=== PATIENT | male | born 1950 | race African-American/Black ===

== ENCOUNTER 2016-12-05 06:59 | Observation (INO) | payer MEDICARE, MEDICAID ==
[2016-12-05 07:38] LABS: #Basophils 0.1 thou/uL (0.0-0.2); #Eosinphils 0.2 thou/uL (0.0-0.7); #Lymphocytes 2.2 thou/uL (1.20-3.40); #Monocytes 0.7 thou/uL (0.11-0.59); #Neutrophils 2.6 thou/uL (1.40-6.50); %Basophils 1.6 % (0.0-1.0); %Eosinophils 2.9 % (0.0-10.0); %Lymphocytes 38.6 % (21.0-51.0); %Monocytes 11.7 % (0.0-10.0); Mean Platelet Volume 7.5 fL (7.4-10.4); Red Blood Cell (RBC) Count 4.49 mill/uL (4.70-6.10); White Blood Cell (WBC) Count 5.7 thou/uL (4.8-10.8)
[2016-12-05 08:00] LABS: ALT (SGPT) 10 U/L (8-55); AST (SGOT) 14 U/L (5-34); Alkaline Phosphatase 87 U/L (40-150); Anion Gap 13 mmol/L (10-20); BUN (Urea Nitrogen) 26 mg/dL (8.4-25.7); Bilirubin, Total 0.4 mg/dL (0.2-1.2); CK (CPK) 478 U/L (30-200); Calc. Creatinine Clearance 0 mL/min (70-130); Calcium 9.7 mg/dL (7.8-10.44); Carbon Dioxide 27 mmol/L (23-31); Chloride 104 mmol/L (98-107); Estimated GFR-MDRD 51; Globulin 3.4 g/dL (2.4-3.5); Lipase 32 U/L (8-78); Magnesium 1.9 mg/dL (1.6-2.6); Protein, Total 7.3 g/dL (5.8-8.1)
--- NOTE | 2016-12-05 08:04 | RAD ---
SINGLE VIEW OF CHEST: Date: 12/05/16 COMPARISON: 07/17/16. HISTORY: Neck and chest pain on the left side that started 10 hours ago. FINDINGS: Single view of the chest shows a normal sized cardiomediastinal silhouette. There is no evidence of consolidation, mass, or pleural effusion. The patient is status post left shoulder arthroplasty. IMPRESSION: No evidence of acute cardiopulmonary disease. POS: [facility]
[2016-12-05 08:19] LABS: Troponin I Less than 0.010 ng/mL (< 0.028)
[2016-12-05 09:50] VITALS: BMI 24.4
[2016-12-05 11:01] LABS: Troponin I Less than 0.010 ng/mL (< 0.028)
[2016-12-05] MEDS ORDERED: FLU VACC TS2017-18 (>65YR) 0.5 ML SYRINGE IM ONE (11:30)
[2016-12-05] MEDS ORDERED: Milk Of Magnesia 30 ML UDCUP PO PRN (11:48)
[2016-12-05] MEDS ORDERED: Acetaminophen 325 MG TAB PO PRN (11:48)
[2016-12-05] MEDS ORDERED: Senokot 8.6 MG TAB PO PRN (11:48)
[2016-12-05] MEDS ORDERED: Ondansetron HCl/PF 4 MG/2 ML Vial IVP PRN (11:48)
[2016-12-05] MEDS ORDERED: Zolpidem Tartrate 5 MG TAB PO PRN (11:48)
[2016-12-05] MEDS ORDERED: Mag-Al 1200 mg/1200 mg/30 ML UDCUP PO PRN (11:48)
[2016-12-05] MEDS ORDERED: Ondansetron ODT 4 MG TAB PO PRN (11:48)
[2016-12-05] MEDS ORDERED: Loperamide HCl 2 MG CAP PO PRN (11:48)
[2016-12-05] MEDS ORDERED: Dextrose 50% Abboject 50 ML SYRINGE SLOW IVP PRN (11:52)
[2016-12-05] MEDS ORDERED: Dextrose 5% in Water 1,000 ML IV PRN (11:52)
[2016-12-05] MEDS ORDERED: HumaLOG 300 UNITS/3 ML VIAL SC PRN ×2 (11:52)
[2016-12-05] MEDS ORDERED: fentaNYL 100 mcg/hour Patch TD SCH (12:30)
--- NOTE | 2016-12-05 12:45 | HP ---
PRIMARY CARE PHYSICIAN: [facility] in [place]. REASON FOR ADMISSION: Chest pain. HISTORY OF PRESENT ILLNESS: A 66-year-old male who has chronic neck and shoulder p ain, who came to emergency room for evaluation for left-sided chest pain. The patient has this pain for last 2-3 days, but last night gotten worse. The patient normally takes fentanyl patch and Norc o for chronic pain. He ran out chronic pain medication. Dr. Jenkins is his pain doctor, who prescrib ed fentanyl patch as well as [place], but he was not able to pick it up. His pain gotten worse and th at is why he was concerned about heart pain and he decided to come to the emergency room for evaluat ion. He denies any radiation of pain. His pain is on the left side over left ribcage about 8/10 in intensity, which is increased with movement and lying down on the left side. He also has neck pain and shoulder pain which has also gotten worse lately. The patient reports that because of this richard n, he was not able to sleep last night. The patient woke up this morning with pain and he was slightly diaphoretic. He called paramedics an d paramedics gave him aspirin and nitrospray and that helped little bit his pain, but he was still h aving left-sided sharp pain as well as neck pain and shoulder pain. The patient had routine evaluation in the emergency room and his routine blood tests including cardi ogram was unremarkable. The patient is being admitted for rule out acute coronary syndrome. This p atient has stress test done in 2015 at that time it was normal. Since then, the patient never had a ny cardiac workup. REVIEW OF SYSTEMS: The following complete review of systems was negative, unless otherwise mentione d in the HPI or below: Constitutional: Weight loss or gain, ability to conduct usual activities. Skin: Rash, itching. Eyes: Double vision, pain. ENT/Mouth: Nose bleeding, neck stiffness, pain, tenderness. Cardiovascular: Palpitations, dyspnea on exertion, orthopnea. Respiratory: Shortness of breath, wheezing, cough, hemoptysis, fever or night sweats. Gastrointestinal: Poor appetite, abdominal pain, heartburn, nausea, vomiting, constipation, or diar yogesh. Genitourinary: Urgency, frequency, dysuria, nocturia. Musculoskeletal: Pain, swelling. Neurologic/Psychiatric: Anxiety, depression. Allergy/Immunologic: Skin rash, bleeding tendency. Please see my HPI for pertinent positives and negatives. All other review of systems was reviewed a nd negative except as mentioned in the HPI. 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 PAST SURGICAL HISTORY: Back surgery x2, neck surgery, left arm surgery, left shoulder surgery. PAST PSYCHIATRIC HISTORY: Reviewed and negative. SOCIAL HISTORY: The patient lives at home with his family. He smokes about half pack per day. He denies any alcohol abuse. He denies any other illicit drug abuse. FAMILY HISTORY: No strong family history of premature coronary artery disease, stroke or cancer. ALLERGIES: No known drug allergies. CURRENT HOME MEDICATIONS: Aspirin 325 mg p.o. daily, amlodipine 10 mg p.o. daily, Baclofen 20 mg p. o. b.i.d., Pulmicort inhalation b.i.d., Gos[place] 10 one tablet b.i.d. p.r.n., hydrochlorothiazide 12.5 mg p.o. daily, lisinopril 20 mg p.o. daily, metoprolol 50 mg p.o. b.i.d., Crestor 40 mg p.o. at bedt bonnie, Spiriva 18 mcg inhalation daily, Zantac 150 mg p.o. b.i.d., bupropion 150 mg p.o. b.i.d., fenta nyl patch every 3 days, metformin 500 mg p.o. daily. EMERGENCY ROOM COURSE: Reviewed. PHYSICAL EXAMINATION: VITAL SIGNS: On arrival, blood pressure 138/85, pulse 73, respiratory rate 17, temperature 98.0, sa turation 98% on room air, weight 84.8 kilograms. GENERAL: The patient is currently alert, awake, no acute distress. HEENT: Head: Normocephalic and atraumatic. Eyes: Pupils round and reactive to light. Extraocula r muscles are intact. ENT: Oropharynx within normal limits. Moist mucous membranes. No oral lesi ons. No pharyngeal erythema, no exudates. NECK: Supple, though the patient does have reproducible neck pain on the left side. The patient al so has shoulder pain that is movement related. The patient also has left-sided chest pain which is reproducible. CARDIAC: Within normal limits. No murmur, no gallop, no rub. LUNGS: Clear to auscultation without any rhonchi or rales. ABDOMEN: Soft and benign without any tenderness. EXTREMITIES: No edema. NEUROLOGIC: Nonfocal examination. He is moving all 4 limbs, plantar bilateral flexor. PSYCHIATRIC: Normal affect. SIGNIFICANT LABS: EKG based on my review, normal sinus rhythm, premature ventricular complexes, lef t axis deviation. Chest x-ray based on my review, no acute cardiopulmonary process. CBC: WBC 5.7, hemoglobin 12.2, platelets 242. BMP: Sodium 140, potassium 3.7, chloride 104, carbon dioxide 27, BUN 26, creatinine 1.63. Glucose 104, calcium 9.7. Magnesium 1.9. LFT: AST 14, ALT 10, alkaline phosphatase 87, albumin 3.9, lipase 32. CK 478, CK-MB 1.9, troponin I less than 0.010 and then nega tive second enzymes. ASSESSMENT AND PLAN: 1. Left-sided chest pain, most likely this patient's chest pain description is noncardiac, most lik bucky musculoskeletal, given reproducibility. This patient also has underlying several risk factors f or coronary artery disease including hypertension, dyslipidemia, and tobacco abuse disorder. The pa tient will require observation and we will do stress test for diagnostic reason. We will check lipi d profile for risk stratification. Meanwhile, we will continue with nitro patch q.8 hourly, aspirin 325 mg p.o. daily. We will hold on beta pippa therapy because we are planning to do stress test tomorrow. 2. Neck pain and shoulder pain on the left side, most likely is chronic pain. This patient has nec k, degenerative joint disease. At this point, the patient is following Dr. Jenkins as an outpatient b asis. He was given pain medication by Dr. Jenkins, but he was not able to pick a prescription. I jagruti l resume his home medication fentanyl patch every 3 days, along with [place] 10 one tablet q.4 hourly p.r.n. and baclofen 20 mg b.i.d. 3. Hypertension. We will continue amlodipine 10 mg p.o. daily, lisinopril 20 mg p.o. daily, hydroc hlorothiazide 12.5 mg p.o. daily. We are holding metoprolol because we are planning to do stress te st, but that can be restarted again tomorrow. 4. Chronic obstructive pulmonary disease without exacerbation. We will continue DuoNeb therapy q.6 hourly p.r.n., Spiriva 18 mcg inhalation daily and Pulmicort inhalation b.i.d. 5. Dyslipidemia. Check lipid profile tomorrow and continue Crestor 40 mg p.o. at bedtime. 6. Diabetes type 2. Insulin as per sliding scale protocol and continue metformin 500 mg p.o. daily . 7. Tobacco abuse disorder. Smoking cessation counseling given. Healthy lifestyle measures discuss ed with the patient. 8. Gastroesophageal reflux disease. We will continue Zantac 150 mg p.o. b.i.d./Pepcid 20 mg p.o. b .i.d. 9. Anxiety disorder. Continue bupropion 150 mg p.o. b.i.d. Deep venous thrombosis prophylaxis not needed because we are expecting discharge in 24 hours. 10. Gastrointestinal prophylaxis. Pepcid 20 mg p.o. b.i.d. 11. Code status: The patient is FULL CODE. The patient does not have any surrogate decision maker . Disposition plan based on stress test results, likely within 24 hours. Plan of care discussed with the patient in detail.
[2016-12-05] MEDS: HYDROcodone/Acetaminophen 10/325 mg Tablet PO PRN ×2 (13:11→19:38)
[2016-12-05 14:11] LABS: Troponin I Less than 0.010 ng/mL (< 0.028)
[2016-12-05] MEDS: Ipratropium Bromide 2.5 ml Neb NEB SCH ×4 (16:14→23:55)
[2016-12-05] MEDS: Nitroglycerin 2% Ointment 1 INCH/1 GM Packet TOP SCH ×2 (17:40→19:39)
[2016-12-05] MEDS: Famotidine 20 MG TAB PO SCH (19:38)
[2016-12-05] MEDS: Bupropion 150 MG SR TAB PO SCH (19:38)
[2016-12-05] MEDS: Baclofen 10 MG TAB PO SCH (19:38)
[2016-12-05] MEDS ORDERED: Mometasone Furoate 120 PUFF 220 MCG INH PRN (21:00)
[2016-12-06] MEDS: Nitroglycerin 2% Ointment 1 INCH/1 GM Packet TOP SCH (06:19)
[2016-12-06] MEDS: Ipratropium Bromide 2.5 ml Neb NEB SCH ×2 (06:48→12:45)
[2016-12-06] MEDS: Baclofen 10 MG TAB PO SCH (08:58)
[2016-12-06] MEDS: Famotidine 20 MG TAB PO SCH (08:59)
[2016-12-06] MEDS: Bupropion 150 MG SR TAB PO SCH (08:59)
[2016-12-06] MEDS ORDERED: Lisinopril 20 MG TAB PO SCH (09:00)
[2016-12-06] MEDS ORDERED: Aspirin 325 MG TAB PO SCH (09:00)
[2016-12-06] MEDS ORDERED: Hydrochlorothiazide 25 MG TAB PO SCH (09:00)
[2016-12-06] MEDS: HYDROcodone/Acetaminophen 10/325 mg Tablet PO PRN (09:02)
--- NOTE | 2016-12-06 10:08 | DIS ---
DATE OF ADMISSION: 12/05/2016 DATE OF DISCHARGE: 12/06/2016 DISCHARGE DISPOSITION: Home. PRIMARY DISCHARGE DIAGNOSES: 1. Chest pain, ruled out acute coronary syndrome. 2. Neck pain and shoulder pain related with cervical spine arthritis. SECONDARY DISCHARGE DIAGNOSES: Hypertension, chronic obstructive pulmonary disease, diabetes type 2, dyslipidemia, tobacco abuse disorder, gastroesophageal reflux disease, anxiety disorder, and chronic pain disorder. PRIMARY PROCEDURE/OPERATION: None. RADIOLOGICAL INVESTIGATION: Chest x-ray was normal. Stress test is negative SIGNIFICANT LABORATORY DATA: Hemoglobin 12.2, creatinine 1.63, CK 478. Cardiac enzymes negative x3. LFT normal, lipase 32. DISCHARGE MEDICATIONS: Amlodipine 5 mg p.o. b.i.d., aspirin 325 mg p.o. daily, baclofen 20 mg p.o. b.i.d., Pulmicort 2 puffs inhalation b.i.d., [place] 10 one tablet b.i.d. p.r.n., hydrochlorothiazide 12.5 mg p.o. daily, lisinopril 20 mg p.o. daily, metoprolol tartrate 50 mg p.o. b.i.d., Crestor 40 mg p.o. at bedtime , Spiriva 18 mcg inhalation daily, Zantac 150 mg p.o. b.i.d., fentanyl patch every 3 days, metformin 500 mg p.o. daily. CONTRAINDICATIONS: None. CODE STATUS: FULL CODE. INPATIENT CONSULTANTS: None. ALLERGIES: No known drug allergies. DISCHARGE PLAN: Post hospital, the patient is advised to follow with primary care physician. HOSPITAL COURSE: A 66-year-old male who was admitted for chest pain. He was having left-sided sharp chest pain which was mostly musculoskeletal based on his description. We did serial cardiac enzymes and ruled out acute coronary syndrome. We also did a nuclear medicine stress test; result is pending by the time of dictation. If stress test is negative, then this patient will be discharged home. This patient is also complaining of neck pain and shoulder pain, but he has cervical spine arthritis and he has chronic pain disorder. He is following Dr. Hauser for pain management. Dr. Hauser already prescribed him pain medication, but he has to go to pharmacy to pick it up. While in hospital, we controlled his pain as well. We continued all his home medication and on discharge, we continued similar home medications without any change. The patient is seen and examined at bedside today. All review of systems reviewed and negative. PHYSICAL EXAMINATION: VITAL SIGNS: Currently temperature 98.1, pulse 66, respiratory rate 18, saturation 96%, blood pressure 124/72, weight 180 pounds. LUNGS: Clear to auscultation without any rhonchi. CARDIAC: S1 and S2 regular without any murmur. ABDOMEN: Soft and benign. EXTREMITIES: No edema. NEUROLOGIC: Nonfocal examination. GENERAL: The patient is alert, oriented x3. If stress test is negative, then we will discharge him home later on today. Stress test is normal MTDD
[2016-12-06 11:36] VITALS: BP 103/60; TEMP 98.4
[2016-12-06] MEDS ORDERED: Regadenoson 0.4 MG/5 ML SYRINGE ONE (12:00)
--- NOTE | 2016-12-06 12:54 | NM ---
NUCLEAR MEDICINE CARDIAC PERFUSION EXAMINATION WITH EJECTION FRACTION: COMPARISON: 12/21/14. HISTORY: 66-year-old male with chest pain. History of stroke. Hypertension, diabetes, and smoking history. TECHNIQUE: A two day nuclear medicine cardiac perfusion examination was performed. Rest images were obtained us ing 27 mCi of technetium-99m sestamibi. Stress images were obtained using 31 mCi of technetium-99m s estamibi and Lexiscan. FINDINGS: Tomographic images show no significant fixed or reversible perfusion defects. Gated images show norm al wall motion with an ejection fraction of 53%. EDV: 118 ml LHR: 0.4 TID: 0.9 IMPRESSION: No evidence of ischemia. POS: [facility]
== END 2016-12-06 13:48 | disposition home or self-care (01) ==
LOC: ERS 06:59 → 2SW 08:47
PROVIDERS: ADMIT Internal Medicine; ATTEND Internal Medicine
DX: R07.89 Other chest pain (principal); M46.92 Unspecified inflammatory spondylopathy, cervical region; I10 Essential (primary) hypertension; E11.9 Type 2 diabetes mellitus without complications; K21.9 Gastro-esophageal reflux disease without esophagitis; B18.2 Chronic viral hepatitis C; F17.210 Nicotine dependence, cigarettes, uncomplicated; J44.9 Chronic obstructive pulmonary disease, unspecified; Z79.899 Other long term (current) drug therapy; Z98.890 Other specified postprocedural states; Z86.73 Personal history of transient ischemic attack (TIA), and cerebral infarction without residual deficits
CPT/HCPCS: 71010; 78452; 80053; 80061; 82550; 82553; 82962 ×2; 83690; 83735; 84484 ×2; 85025; 93005; 93017; 94640 ×2; 99285; A9500; G0008; G0378 ×2; Q2036; 36415; 36416; 90471; 90682; J2785; J7644

== ENCOUNTER 2022-07-21 04:27 | Inpatient (IN) | payer OTHER ==
[2022-07-21] MEDS ORDERED: Ondansetron PF 4 MG/2 ML Vial IVP PRN (07:53)
[2022-07-21] MEDS ORDERED: Glucagon 1 MG/ML KIT IM PRN (07:53)
[2022-07-21] MEDS ORDERED: Acetaminophen 325 MG TAB PO PRN (07:53)
[2022-07-21] MEDS ORDERED: Dextrose 5% in Water 1,000 ML IV PRN (07:53)
[2022-07-21] MEDS ORDERED: HumaLOG 300 UNITS/3 ML VIAL SC PRN (07:53)
[2022-07-21] MEDS ORDERED: Dextrose 50% Abboject 50 ML SYRINGE SLOW IVP PRN (07:53)
[2022-07-21] MEDS ORDERED: Mometasone Furoate 30 PUFF 220 MCG INH PRN (08:14)
[2022-07-21] MEDS: metFORMIN 500 MG TAB PO SCH (09:42)
[2022-07-21] MEDS: Heparin 5,000 UNITS/ML VIAL SC SCH ×3 (09:43→19:59)
[2022-07-21] MEDS: Aspirin 81 mg Enteric Coated Tablet PO SCH (09:43)
[2022-07-21 09:45] LABS: Troponin I Less than 0.010 ng/mL (< 0.028)
[2022-07-21] MEDS ORDERED: hydrALAZINE 20 MG/ML VIAL SLOW IVP PRN (09:55)
[2022-07-21] MEDS ORDERED: Regadenoson 0.4 MG/5 ML SYRINGE ONE (12:14)
[2022-07-21] MEDS: Ipratropium Bromide 2.5 ml Neb NEB SCH ×3 (13:12→23:42)
[2022-07-21] MEDS: Amlodipine 5 MG TAB PO SCH ×2 (13:47→20:08)
[2022-07-21] MEDS: Bupropion 150 MG SR TAB PO SCH ×2 (13:48→20:08)
[2022-07-21] MEDS: Hydrochlorothiazide 25 MG TAB PO SCH (13:48)
[2022-07-21] MEDS: Lisinopril 20 MG TAB PO SCH (13:49)
[2022-07-21] MEDS: Tamsulosin HCl 0.4 MG CAP PO SCH (13:54)
[2022-07-21] MEDS: Famotidine 20 MG TAB PO SCH (13:54)
[2022-07-21 15:23] LABS: Troponin I Less than 0.010 ng/mL (< 0.028)
[2022-07-21] MEDS: HYDROcodone/Acetaminophen 10/325 mg Tablet PO PRN (17:44)
[2022-07-21] MEDS ORDERED: Communication Order-Pharmacy FS PRN (19:00)
[2022-07-21] MEDS: Rosuvastatin 20 MG TAB PO SCH (19:59)
[2022-07-22] MEDS: Tamsulosin HCl 0.4 MG CAP PO SCH (04:53)
[2022-07-22] MEDS: Aspirin 81 mg Enteric Coated Tablet PO SCH (04:53)
[2022-07-22] MEDS: Famotidine 20 MG TAB PO SCH (04:53)
[2022-07-22 04:57] LABS: #Eosinphils 0.2 thou/uL (0.0-0.7); #Monocytes 0.5 thou/uL (0.11-0.59); #Neutrophils 2.5 thou/uL (1.40-6.50); %Basophils 0.6 % (0.0-1.0); %Eosinophils 3.4 % (0.0-10.0); %Monocytes 8.8 % (0.0-10.0); Mean Corpuscular HGB CONC 31.7 g/dL (32.0-36.0); Mean Corpuscular Hemoglobin 27.1 pg (27.0-31.0); Mean Corpuscular Volume 85.4 fl (78.0-98.0); Mean Platelet Volume 10.3 fL (7.4-10.4); Platelet Count 168 10x3/uL (130-400); RBC Distribution Width 13.9 % (11.5-14.5); White Blood Cell (WBC) Count 5.3 10x3/uL (4.8-10.8)
[2022-07-22 05:05] LABS: Hemoglobin A1c 5.8 % (4.0-6.0)
[2022-07-22 05:20] LABS: Anion Gap 10 mmol/L (10-20); BUN (Urea Nitrogen) 19 mg/dL (8.4-25.7); Calc. Creatinine Clearance 55 mL/min (70-130); Calcium 9.5 mg/dL (7.8-10.44); Carbon Dioxide 22 mmol/L (23-31); Cardiac Risk 2.5 (Less than 4.5); Chloride 110 mmol/L (98-107); Cholesterol 131 mg/dl (< 200 Desired); Estimated GFR 68; Glucose 94 mg/dL (83-110); HDL Cholesterol 53 mg/dL (>60 Neg Risk); LDL Cholesterol, Calculated 70 mg/dL; Potassium 4.1 mmol/L (3.5-5.1); Sodium 138 mmol/L (136-145); Triglycerides 38 mg/dL (Less than 150)
[2022-07-22] MEDS ORDERED: Sodium Chloride 0.9% 1,000 ML IV SCH ×2 (06:00→11:40)
[2022-07-22] MEDS: Ipratropium Bromide 2.5 ml Neb NEB SCH ×3 (07:08→18:58)
[2022-07-22] MEDS: metFORMIN 500 MG TAB PO SCH (07:50)
[2022-07-22] MEDS: HYDROcodone/Acetaminophen 10/325 mg Tablet PO PRN ×2 (08:03→20:42)
[2022-07-22] MEDS: Hydrochlorothiazide 25 MG TAB PO SCH (08:06)
[2022-07-22] MEDS: Bupropion 150 MG SR TAB PO SCH (08:06)
[2022-07-22] MEDS: Lisinopril 20 MG TAB PO SCH (08:06)
[2022-07-22] MEDS: Amlodipine 5 MG TAB PO SCH (08:06)
[2022-07-22] MEDS ORDERED: fentaNYL 50 mcg/mL 1 mL Vial ONE (10:17)
[2022-07-22] MEDS ORDERED: Midazolam HCl 2 mg/2 ml Vial ONE (10:17)
[2022-07-22] MEDS ORDERED: Lidocaine 1% (PF) 30 ML VIAL ONE (10:17)
[2022-07-22] MEDS ORDERED: Heparin 10,000 UNITS/ 10 ML VIAL ONE (10:17)
[2022-07-22] MEDS ORDERED: Iopamidol 370 76% 100 ML VIAL ONE (10:31)
[2022-07-22] MEDS ORDERED: Protamine Sulfate 50 MG/5 ML VIAL ONE (11:22)
[2022-07-22] MEDS ORDERED: Acetaminophen/Codeine 30-300mg Tablet PO PRN ×2 (11:38)
[2022-07-22] MEDS ORDERED: Nitroglycerin 0.4 MG TAB (25 Tab Bottle) SL PRN (11:38)
[2022-07-22] MEDS ORDERED: Sodium Chloride 0.9% 200 ML IV PRN (11:38)
[2022-07-22] MEDS ORDERED: Mometasone 100 MCG/Formoterol 5 MCG 120 PUFF INHALER INH PRN (15:26)
[2022-07-22] MEDS: Rosuvastatin 20 MG TAB PO SCH (20:42)
[2022-07-22] MEDS: Metoprolol Tartrate 25 MG TAB PO SCH (20:43)
[2022-07-22] MEDS ORDERED: Artificial Tear Sol 15 ML BOT EA EYE PRN (21:02)
[2022-07-23] MEDS: Ipratropium Bromide 2.5 ml Neb NEB SCH ×5 (01:52→21:32)
[2022-07-23 05:34] LABS: Anion Gap 11 mmol/L (10-20); BUN (Urea Nitrogen) 16 mg/dL (8.4-25.7); Calc. Creatinine Clearance 56 mL/min (70-130); Calcium 9.5 mg/dL (7.8-10.44); Carbon Dioxide 24 mmol/L (23-31); Chloride 108 mmol/L (98-107); Estimated GFR 69; Glucose 88 mg/dL (83-110); Potassium 4.2 mmol/L (3.5-5.1); Sodium 139 mmol/L (136-145)
[2022-07-23] MEDS: Famotidine 20 MG TAB PO SCH (09:02)
[2022-07-23] MEDS: Aspirin 81 mg Enteric Coated Tablet PO SCH (09:02)
[2022-07-23] MEDS: Lisinopril 20 MG TAB PO SCH (09:02)
[2022-07-23] MEDS: Tamsulosin HCl 0.4 MG CAP PO SCH (09:02)
[2022-07-23] MEDS: Metoprolol Tartrate 25 MG TAB PO SCH ×2 (09:02→19:57)
[2022-07-23] MEDS: Zonisamide 25 MG CAP PO SCH (09:03)
[2022-07-23] MEDS ORDERED: fentaNYL 50 mcg/hour Patch TD SCH (15:00)
[2022-07-23] MEDS: Docusate 100 MG CAP PO SCH (19:56)
[2022-07-23] MEDS: Rosuvastatin 20 MG TAB PO SCH (19:57)
[2022-07-23] MEDS: Baclofen 10 MG TAB PO SCH (19:57)
[2022-07-24 05:10] LABS: Anion Gap 11 mmol/L (10-20); BUN (Urea Nitrogen) 23 mg/dL (8.4-25.7); Calc. Creatinine Clearance 46 mL/min (70-130); Calcium 9.5 mg/dL (7.8-10.44); Carbon Dioxide 25 mmol/L (23-31); Chloride 107 mmol/L (98-107); Estimated GFR 55; Glucose 103 mg/dL (83-110); Potassium 4.7 mmol/L (3.5-5.1); Sodium 138 mmol/L (136-145)
[2022-07-24] MEDS: Ipratropium Bromide 2.5 ml Neb NEB SCH ×4 (07:17→23:45)
[2022-07-24] MEDS ORDERED: Lisinopril 2.5 MG TAB PO SCH (09:00)
[2022-07-24] MEDS: Lisinopril 20 MG TAB PO SCH (09:11)
[2022-07-24] MEDS: Tamsulosin HCl 0.4 MG CAP PO SCH (09:11)
[2022-07-24] MEDS: Docusate 100 MG CAP PO SCH ×2 (09:11→20:41)
[2022-07-24] MEDS: Baclofen 10 MG TAB PO SCH ×2 (09:11→20:41)
[2022-07-24] MEDS: Famotidine 20 MG TAB PO SCH (09:12)
[2022-07-24] MEDS: Aspirin 81 mg Enteric Coated Tablet PO SCH (09:12)
[2022-07-24] MEDS: Zonisamide 25 MG CAP PO SCH (09:12)
[2022-07-24] MEDS: Carvedilol 3.125 MG TAB PO SCH ×2 (09:12→18:02)
[2022-07-24] MEDS: Rosuvastatin 20 MG TAB PO SCH (20:41)
[2022-07-25 05:04] LABS: Anion Gap 10 mmol/L (10-20); BUN (Urea Nitrogen) 26 mg/dL (8.4-25.7); Calc. Creatinine Clearance 46 mL/min (70-130); Calcium 9.6 mg/dL (7.8-10.44); Carbon Dioxide 26 mmol/L (23-31); Chloride 107 mmol/L (98-107); Estimated GFR 54; Glucose 105 mg/dL (83-110); Potassium 4.7 mmol/L (3.5-5.1); Sodium 138 mmol/L (136-145)
[2022-07-25] MEDS ORDERED: Communication Order-Pharmacy FS SCH (06:00)
[2022-07-25] MEDS: Ipratropium Bromide 2.5 ml Neb NEB SCH (06:54)
[2022-07-25] MEDS ORDERED: CEFAZOLIN 2 GM in Sodium Chloride 0.9% 100 ML IVPB SCH (08:00)
[2022-07-25] MEDS: Carvedilol 3.125 MG TAB PO SCH ×2 (08:49→17:26)
[2022-07-25] MEDS: Lisinopril 20 MG TAB PO SCH (08:49)
[2022-07-25] MEDS: HYDROcodone/Acetaminophen 10/325 mg Tablet PO PRN ×2 (08:53→20:18)
[2022-07-25] MEDS: Acetaminophen 325 MG TAB PO PRN (13:10)
[2022-07-25] MEDS: Nitroglycerin 0.4 MG TAB (25 Tab Bottle) SL PRN (13:10)
[2022-07-25] MEDS ORDERED: fentaNYL 50 mcg/hour Patch TD SCH (14:00)
[2022-07-25] MEDS: Mometasone 100 MCG/Formoterol 5 MCG 120 PUFF INHALER INH SCH (19:19)
[2022-07-25] MEDS: Rosuvastatin 20 MG TAB PO SCH (20:14)
[2022-07-25] MEDS: Docusate 100 MG CAP PO SCH (20:14)
[2022-07-26] MEDS: Nitroglycerin 0.4 MG TAB (25 Tab Bottle) SL PRN (04:16)
[2022-07-26 06:24] LABS: Anion Gap 13 mmol/L (10-20); BUN (Urea Nitrogen) 25 mg/dL (8.4-25.7); Calc. Creatinine Clearance 48 mL/min (70-130); Calcium 10.5 mg/dL (7.8-10.44); Carbon Dioxide 26 mmol/L (23-31); Chloride 104 mmol/L (98-107); Estimated GFR 58; Glucose 101 mg/dL (83-110); Potassium 4.9 mmol/L (3.5-5.1); Sodium 138 mmol/L (136-145)
[2022-07-26] MEDS: Mometasone 100 MCG/Formoterol 5 MCG 120 PUFF INHALER INH SCH ×2 (07:02→19:00)
[2022-07-26] MEDS: Famotidine 20 MG TAB PO SCH (08:27)
[2022-07-26] MEDS: Lisinopril 20 MG TAB PO SCH (08:27)
[2022-07-26] MEDS: Carvedilol 3.125 MG TAB PO SCH ×2 (08:27→16:02)
[2022-07-26] MEDS: Tamsulosin HCl 0.4 MG CAP PO SCH (08:27)
[2022-07-26] MEDS: Aspirin 81 mg Enteric Coated Tablet PO SCH (08:28)
[2022-07-26] MEDS: Polyvinyl Alcohol 1.4%/Povidone 0.6% Opth Drops EA EYE SCH ×3 (08:28→20:28)
[2022-07-26] MEDS: Zonisamide 25 MG CAP PO SCH (08:28)
[2022-07-26] MEDS: Docusate 100 MG CAP PO SCH ×2 (08:29→20:28)
[2022-07-26] MEDS: HYDROcodone/Acetaminophen 10/325 mg Tablet PO PRN (08:38)
[2022-07-26] MEDS ORDERED: Polyvinyl Alcohol 1.4%/Povidone 0.6% Opth Drops EA EYE SCH (09:00)
[2022-07-26] MEDS: Acetaminophen 325 MG TAB PO PRN (13:45)
[2022-07-26] MEDS: Rosuvastatin 20 MG TAB PO SCH (20:27)
[2022-07-27 07:26] LABS: Anion Gap 13 mmol/L (10-20); BUN (Urea Nitrogen) 26 mg/dL (8.4-25.7); Calc. Creatinine Clearance 52 mL/min (70-130); Calcium 9.9 mg/dL (7.8-10.44); Carbon Dioxide 25 mmol/L (23-31); Chloride 103 mmol/L (98-107); Estimated GFR 64; Glucose 91 mg/dL (83-110); Potassium 4.3 mmol/L (3.5-5.1); Sodium 137 mmol/L (136-145)
[2022-07-27] MEDS: Lisinopril 20 MG TAB PO SCH (07:55)
[2022-07-27] MEDS: Tamsulosin HCl 0.4 MG CAP PO SCH (07:55)
[2022-07-27] MEDS: Zonisamide 25 MG CAP PO SCH (07:56)
[2022-07-27] MEDS: Carvedilol 3.125 MG TAB PO SCH ×2 (07:56→17:29)
[2022-07-27] MEDS: Famotidine 20 MG TAB PO SCH (07:56)
[2022-07-27] MEDS: Aspirin 81 mg Enteric Coated Tablet PO SCH (07:56)
[2022-07-27] MEDS: Docusate 100 MG CAP PO SCH ×2 (07:56→20:19)
[2022-07-27] MEDS: Polyvinyl Alcohol 1.4%/Povidone 0.6% Opth Drops EA EYE SCH ×3 (07:57→20:19)
[2022-07-27] MEDS: Mometasone 100 MCG/Formoterol 5 MCG 120 PUFF INHALER INH SCH ×2 (07:59→19:28)
[2022-07-27] MEDS ORDERED: Communication Order-Pharmacy FS SCH (08:30)
[2022-07-27] MEDS: Nitroglycerin 0.4 MG TAB (25 Tab Bottle) SL PRN (09:21)
[2022-07-27] MEDS: Acetaminophen 325 MG TAB PO PRN ×2 (13:56→20:18)
[2022-07-27] MEDS: Rosuvastatin 20 MG TAB PO SCH (20:18)
[2022-07-28 05:18] LABS: Anion Gap 14 mmol/L (10-20); BUN (Urea Nitrogen) 30 mg/dL (8.4-25.7); Calc. Creatinine Clearance 48 mL/min (70-130); Calcium 9.5 mg/dL (7.8-10.44); Carbon Dioxide 22 mmol/L (23-31); Chloride 105 mmol/L (98-107); Estimated GFR 57; Glucose 92 mg/dL (83-110); Potassium 4.7 mmol/L (3.5-5.1); Sodium 136 mmol/L (136-145)
[2022-07-28] MEDS: Carvedilol 3.125 MG TAB PO SCH (05:36)
[2022-07-28] MEDS: Lisinopril 20 MG TAB PO SCH (05:36)
[2022-07-28] MEDS ORDERED: Albumin 5% 500 ML ONE (06:36)
[2022-07-28] MEDS ORDERED: Dexamethasone 4 mg/ml Vial ONE (06:36)
[2022-07-28] MEDS ORDERED: Bupivacaine HCl 0.5%/Epinephrine 1:200,000/PF 30 ml Vial ONE (06:36)
[2022-07-28] MEDS ORDERED: PHENYLEPHRINE-NS 100 MCG/ML 10 ML SYRINGE ONE ×2 (06:36→07:43)
[2022-07-28] MEDS ORDERED: CEFAZOLIN 2 GM VIAL ONE (06:40)
[2022-07-28] MEDS ORDERED: Sodium Chloride 0.9% 0 ML ONE (06:40)
[2022-07-28] MEDS ORDERED: Fentanyl 250 MCG/5 ML VIAL ONE (06:49)
[2022-07-28] MEDS ORDERED: Midazolam HCl 2 mg/2 ml Vial ONE (06:49)
[2022-07-28] MEDS ORDERED: Vasopressin 20 UNITS/ML VIAL ONE (06:50)
[2022-07-28] MEDS ORDERED: Norepinephrine 4 MG/4 ML VIAL ONE (06:50)
[2022-07-28] MEDS ORDERED: SUGAMMADEX SODIUM 200 MG/2 ML VIAL ONE (06:50)
[2022-07-28] MEDS ORDERED: Aminocaproic Acid 5 GM/20 ML VIAL ONE ×2 (06:50→07:43)
[2022-07-28] MEDS ORDERED: Rocuronium Bromide 50 MG/5 ML VIAL ONE (06:50)
[2022-07-28] MEDS ORDERED: niCARdipine 25 MG/10 ML SDV ONE (06:50)
[2022-07-28] MEDS ORDERED: Insulin Regular 300 UNITS/3 ML VIAL ONE (06:50)
[2022-07-28] MEDS ORDERED: EPINEPHrine 1 MG/ML AMP ONE (06:50)
[2022-07-28] MEDS ORDERED: Heparin 10,000 UNITS/1 ML VIAL 30,000 UNITS in Sodium Chloride 0.9% 1,000 ML FS SCH (07:15)
[2022-07-28] MEDS ORDERED: Albuterol HFA (OR) 200 PUFF INH ONE (07:38)
[2022-07-28] MEDS ORDERED: Heparin 5,000 UNITS/ML VIAL ONE (07:43)
[2022-07-28] MEDS ORDERED: Papaverine 60 MG/2 ML VIAL ONE (07:43)
[2022-07-28] MEDS ORDERED: Heparin 30,000 units/30 ml VIAL ONE (07:43)
[2022-07-28] MEDS ORDERED: Esmolol 100 MG/10 ML VIAL ONE (07:43)
[2022-07-28] MEDS ORDERED: Protamine Sulfate 250 MG/25 ML VIAL ONE (07:43)
[2022-07-28] MEDS ORDERED: Magnesium 5 GM/10 ML VIAL ONE (07:43)
[2022-07-28] MEDS ORDERED: Calcium Chloride 1 GM/10 ML Abboject SYRINGE ONE (07:43)
[2022-07-28] MEDS ORDERED: Lidocaine 1% PF 5 ML VIAL ONE (07:43)
[2022-07-28] MEDS ORDERED: Rocuronium Bromide 10 MG/ML (10ML VIAL) ONE (07:43)
[2022-07-28] MEDS ORDERED: Cardioplegic Soln 1,000 ML BAG ONE (07:43)
[2022-07-28] MEDS ORDERED: Thrombin 5000 UNITS/5 ML VIAL ONE (07:43)
[2022-07-28] MEDS ORDERED: Mannitol 12.5 GM/50 ML ONE (07:43)
[2022-07-28] MEDS ORDERED: Sodium Bicarb 50 MEQ/50 ML VIAL ONE (07:43)
[2022-07-28] MEDS ORDERED: Potassium Chloride 60 MEQ/30 ML VIAL ONE (07:43)
[2022-07-28] MEDS ORDERED: PROPOFOL 200 MG/20 ML VIAL ONE (07:43)
[2022-07-28] MEDS ORDERED: Lidocaine 2% PF 100 mg/5 ml Syringe ONE (07:43)
[2022-07-28] MEDS ORDERED: Vancomycin 1 GM VIAL ONE (07:43)
[2022-07-28] MEDS ORDERED: Milrinone 10 MG/10 ML VIAL ONE (07:50)
[2022-07-28] MEDS ORDERED: Heparin 10,000 UNITS/ 10 ML VIAL ONE (09:39)
[2022-07-28] MEDS: Famotidine 20 MG TAB PO SCH (11:09)
[2022-07-28] MEDS: Mometasone 100 MCG/Formoterol 5 MCG 120 PUFF INHALER INH SCH (11:09)
[2022-07-28] MEDS: Docusate 100 MG CAP PO SCH (11:09)
[2022-07-28] MEDS: Aspirin 81 mg Enteric Coated Tablet PO SCH (11:09)
[2022-07-28] MEDS: Tamsulosin HCl 0.4 MG CAP PO SCH (11:10)
[2022-07-28] MEDS: Polyvinyl Alcohol 1.4%/Povidone 0.6% Opth Drops EA EYE SCH (11:10)
[2022-07-28] MEDS: Zonisamide 25 MG CAP PO SCH (11:10)
[2022-07-28] MEDS ORDERED: niCARdipine 25 MG in Sodium Chloride 0.9% 250 ML 250 ML IVPB PRN (11:49)
[2022-07-28] MEDS ORDERED: traMADol HCl 50 MG TAB PO PRN ×2 (11:49)
[2022-07-28] MEDS ORDERED: Potassium Chloride 20 MEQ/100 ML PREMIX BAG IVPB PRN (11:49)
[2022-07-28] MEDS ORDERED: Hetastarch 6% 500 ML 500 ML IVPB PRN (11:49)
[2022-07-28] MEDS ORDERED: NOREPINEPHRINE 8 MG/250 ML-D5W 250 ML IVPB PRN (11:49)
[2022-07-28] MEDS ORDERED: Promethazine HCl 25 MG/ML VIAL IM PRN (11:49)
[2022-07-28] MEDS ORDERED: Mag-Al 1200 mg/1200 mg/30 ML UDCUP PO PRN (11:49)
[2022-07-28] MEDS ORDERED: Bisacodyl 5 MG TAB PO PRN (11:49)
[2022-07-28] MEDS ORDERED: fentaNYL 50 mcg/mL 1 mL Vial SLOW IVP PRN ×2 (11:49)
[2022-07-28] MEDS ORDERED: Bisacodyl 10 MG SUPP PR PRN (11:49)
[2022-07-28] MEDS ORDERED: hydrALAZINE 20 MG/ML VIAL SLOW IVP PRN (11:49)
[2022-07-28] MEDS ORDERED: Ipratropium/Albuterol 3 ML NEB NEB PRN (11:49)
[2022-07-28] MEDS ORDERED: Ondansetron PF 4 MG/2 ML Vial IVP PRN (11:49)
[2022-07-28 11:57] LABS: #Eosinphils 0.1 thou/uL (0.0-0.7); #Monocytes 0.8 thou/uL (0.11-0.59); #Neutrophils 9.8 thou/uL (1.40-6.50); %Basophils 0.2 % (0.0-1.0); %Eosinophils 0.8 % (0.0-10.0); %Monocytes 6.4 % (0.0-10.0); %Neutrophils 82.3 % (42.0-75.0); Hemoglobin 10.4 g/dL (14.0-18.0); Mean Corpuscular HGB CONC 30.9 g/dL (32.0-36.0); Mean Corpuscular Hemoglobin 27.1 pg (27.0-31.0); Mean Corpuscular Volume 87.8 fl (78.0-98.0); Mean Platelet Volume 10.3 fL (7.4-10.4); Platelet Count 143 10x3/uL (130-400); RBC Distribution Width 13.6 % (11.5-14.5); Red Blood Cell (RBC) Count 3.84 mill/uL (4.70-6.10); White Blood Cell (WBC) Count 11.9 10x3/uL (4.8-10.8)
[2022-07-28 12:10] LABS: PTT 33.3 sec (22.9-36.1)
[2022-07-28 12:11] LABS: INR-International Normal Ratio 1.4; Prothrombin Time 17.3 sec (12.0-14.7)
[2022-07-28] MEDS: Morphine 2 MG/ML VIAL SLOW IVP PRN ×2 (12:15→12:34)
[2022-07-28 12:17] LABS: Anion Gap 12 mmol/L (10-20); BUN (Urea Nitrogen) 26 mg/dL (8.4-25.7); Calc. Creatinine Clearance 59 mL/min (70-130); Calcium 8.1 mg/dL (7.8-10.44); Carbon Dioxide 20 mmol/L (23-31); Chloride 110 mmol/L (98-107); Estimated GFR 75; Glucose 139 mg/dL (83-110); Potassium 4.4 mmol/L (3.5-5.1); Sodium 138 mmol/L (136-145)
[2022-07-28] MEDS: Potassium Chloride 20 MEQ in Lactated Ringer's 1,000 ML IV SCH (12:27)
[2022-07-28 12:30] LABS: Actual Bicarbonate (HCO3a) 20.7 mEq/L (22-28); Base Excess (BEa) -4.2 mEq/L (-2.0 to +3.0); CO2 Tension 36.9 mmHg (35.0-45.0); Calcium, Ionized (arterial) 1.13 mmol/L (1.12-1.30); Carboxyhemoglobin (COHb) 0.4 gm% (0.0-3.0); Hematocrit-ABG 34 % (42.0-52.0); Hemoglobin (Hb) 11.5 g/dL (14.0-18.0); O2 Tension (PaO2), arterial 122.8 mmHg (> 70.0); Potassium - ABG Lab 4.15 mmol/L (3.70-5.30); pH, Arterial 7.366 (7.35-7.45)
[2022-07-28] MEDS ORDERED: Dextrose 50% Abboject 50 ML SYRINGE SLOW IVP PRN (12:30)
[2022-07-28] MEDS ORDERED: Insulin Regular 300 UNITS/3 ML VIAL SC PRN (12:30)
[2022-07-28] MEDS ORDERED: Glucagon 1 MG/ML KIT SC PRN (12:30)
[2022-07-28] MEDS ORDERED: Dextrose 5% in Water 1,000 ML IV PRN (12:30)
[2022-07-28] MEDS ORDERED: HUMULIN R 100 UNITS in Sodium Chloride 0.9% 100 ML IVPB SCH (13:00)
[2022-07-28] MEDS: CEFAZOLIN 2 GM in Sodium Chloride 0.9% 100 ML IVPB SCH ×2 (14:36→21:16)
[2022-07-28 16:47] LABS: Actual Bicarbonate (HCO3a) 19.4 mEq/L (22-28); Base Excess (BEa) -4.9 mEq/L (-2.0 to +3.0); CO2 Tension 33.7 mmHg (35.0-45.0); Calcium, Ionized (arterial) 1.14 mmol/L (1.12-1.30); Carboxyhemoglobin (COHb) 0.5 gm% (0.0-3.0); Hematocrit-ABG 35 % (42.0-52.0); Hemoglobin (Hb) 11.8 g/dL (14.0-18.0); Potassium - ABG Lab 4.09 mmol/L (3.70-5.30); pH, Arterial 7.379 (7.35-7.45)
[2022-07-28 16:51] LABS: ALV-art Gradient 187.575 mmHg (0-20); Puncture Site Arterial Line
[2022-07-28 16:52] LABS: ALV-art Gradient 153.075 mmHg (0-20); Puncture Site Arterial Line
[2022-07-28 17:20] LABS: Hemoglobin 11.2 g/dL (14.0-18.0)
[2022-07-28 17:34] LABS: Potassium 4.1 mmol/L (3.5-5.1)
[2022-07-28] MEDS ORDERED: Atorvastatin Calcium 20 MG TAB PO SCH (21:00)
[2022-07-28] MEDS ORDERED: Famotidine/PF 20 mg/2ml Vial SLOW IVP SCH (21:00)
[2022-07-29 04:22] LABS: #Monocytes 1.3 thou/uL (0.11-0.59); #Neutrophils 8.6 thou/uL (1.40-6.50); %Basophils 0.1 % (0.0-1.0); %Lymphocytes 7.1 % (21.0-51.0); %Monocytes 11.9 % (0.0-10.0); %Neutrophils 80.4 % (42.0-75.0); Hemoglobin 10.8 g/dL (14.0-18.0); Mean Corpuscular Hemoglobin 27.6 pg (27.0-31.0); Mean Corpuscular Volume 86.2 fl (78.0-98.0); Platelet Count 173 10x3/uL (130-400); RBC Distribution Width 13.7 % (11.5-14.5); Red Blood Cell (RBC) Count 3.91 mill/uL (4.70-6.10); White Blood Cell (WBC) Count 10.7 10x3/uL (4.8-10.8)
[2022-07-29 04:46] LABS: Anion Gap 11 mmol/L (10-20); BUN (Urea Nitrogen) 23 mg/dL (8.4-25.7); Calc. Creatinine Clearance 59 mL/min (70-130); Calcium 8.7 mg/dL (7.8-10.44); Carbon Dioxide 22 mmol/L (23-31); Chloride 111 mmol/L (98-107); Estimated GFR 74; Glucose 115 mg/dL (83-110); Potassium 4.3 mmol/L (3.5-5.1); Sodium 140 mmol/L (136-145)
[2022-07-29] MEDS: CEFAZOLIN 2 GM in Sodium Chloride 0.9% 100 ML IVPB SCH (05:19)
[2022-07-29] MEDS: Mometasone/Formoterol 60 PUFF AER INH SCH ×2 (07:15→18:35)
[2022-07-29 08:25] VITALS: BMI 21.8
[2022-07-29] MEDS: Aspirin 325 MG TAB PO SCH (10:06)
[2022-07-29] MEDS: Magnesium 2 GM/50 ML(in water) 2 GM in Premix Bag 1 BAG IVPB SCH (10:07)
[2022-07-29] MEDS: Tamsulosin HCl 0.4 MG CAP PO SCH (10:07)
[2022-07-29] MEDS: Potassium Chloride 20 MEQ in Lactated Ringer's 1,000 ML IV SCH (10:12)
[2022-07-29] MEDS ORDERED: Insulin Glargine 30 UNITS/0.3 ML VIAL SC PRN (12:56)
[2022-07-29] MEDS: HYDROcodone/Acetaminophen 10/325 mg Tablet PO PRN (18:37)
[2022-07-29] MEDS: Atorvastatin Calcium 40 MG TAB PO SCH (20:22)
[2022-07-30] MEDS: Mometasone/Formoterol 60 PUFF AER INH SCH ×2 (07:36→19:41)
[2022-07-30] MEDS: Aspirin 325 MG TAB PO SCH (08:50)
[2022-07-30] MEDS: Tamsulosin HCl 0.4 MG CAP PO SCH (08:51)
[2022-07-30] MEDS: Magnesium 2 GM/50 ML(in water) 2 GM in Premix Bag 1 BAG IVPB SCH (08:51)
[2022-07-30] MEDS: HYDROcodone/Acetaminophen 10/325 mg Tablet PO PRN ×2 (08:53→20:32)
[2022-07-30] MEDS ORDERED: Ipratropium/Albuterol 3 ML NEB EZPAP PRN (10:04)
[2022-07-30] MEDS ORDERED: Albumin 5% 250 ML ONE (10:20)
[2022-07-30] MEDS ORDERED: Ipratropium/Albuterol 3 ML NEB NEB SCH (10:30)
[2022-07-30] MEDS ORDERED: guaiFENesin ER 600 MG TAB PO SCH (11:15)
[2022-07-30] MEDS: guaiFENesin ER 600 MG TAB PO SCH ×2 (11:17→20:33)
[2022-07-30 13:54] LABS: Actual Bicarbonate (HCO3a) 21.5 mEq/L (22-28); Base Excess (BEa) -1.2 mEq/L (-2.0 to +3.0); CO2 Tension 29.4 mmHg (35.0-45.0); Carboxyhemoglobin (COHb) 0.5 gm% (0.0-3.0); Hematocrit-ABG 31 % (42.0-52.0); Hemoglobin (Hb) 10.4 g/dL (14.0-18.0); O2 Tension (PaO2), arterial 61.2 mmHg (> 70.0); Potassium - ABG Lab 4.14 mmol/L (3.70-5.30); pH, Arterial 7.482 (7.35-7.45)
[2022-07-30 13:55] LABS: Puncture Site RRA
[2022-07-30 14:13] LABS: Actual Bicarbonate (HCO3a) 24.4 mEq/L (22-28); Analyzer IN Cardio OR; Base Excess (BEa) 0.5 mEq/L (-2.0 to +3.0); CO2 Tension 37.1 mmHg (35.0-45.0); Calcium, Ionized (arterial) 1.16 mmol/L (1.12-1.30); Carboxyhemoglobin (COHb) 1.2 gm% (0.0-3.0); Hematocrit-ABG 38 % (42.0-52.0); O2 Tension (PaO2), arterial 507.2 mmHg (> 70.0); Potassium - ABG Lab 4.08 mmol/L (3.70-5.30); pH, Arterial 7.436 (7.35-7.45)
[2022-07-30 14:13] LABS: Analyzer IN Cardio OR; Base Excess (BEa) -2.2 mEq/L (-2.0 to +3.0); CO2 Tension 41.2 mmHg (35.0-45.0); Calcium, Ionized (arterial) 1.15 mmol/L (1.12-1.30); Carboxyhemoglobin (COHb) 0.7 gm% (0.0-3.0); Hematocrit-ABG 36 % (42.0-52.0); Hemoglobin (Hb) 12.1 g/dL (14.0-18.0); O2 Tension (PaO2), arterial 514.1 mmHg (> 70.0); Potassium - ABG Lab 4.08 mmol/L (3.70-5.30); pH, Arterial 7.365 (7.35-7.45)
[2022-07-30 14:14] LABS: Puncture Site Arterial Line
[2022-07-30 14:14] LABS: Puncture Site Arterial Line
[2022-07-30 14:14] LABS: Actual Bicarbonate (HCO3a) 22.4 mEq/L (22-28); Analyzer IN Cardio OR; Base Excess (BEa) -1.7 mEq/L (-2.0 to +3.0); CO2 Tension 35.3 mmHg (35.0-45.0); Calcium, Ionized (arterial) 1.06 mmol/L (1.12-1.30); Carboxyhemoglobin (COHb) 0.5 gm% (0.0-3.0); Hematocrit-ABG 27 % (42.0-52.0); Hemoglobin (Hb) 9.1 g/dL (14.0-18.0); O2 Tension (PaO2), arterial 440.5 mmHg (> 70.0); Potassium - ABG Lab 4.97 mmol/L (3.70-5.30); pH, Arterial 7.421 (7.35-7.45)
[2022-07-30 14:15] LABS: Puncture Site Arterial Line
[2022-07-30 14:15] LABS: Actual Bicarbonate (HCO3a) 23.7 mEq/L (22-28); Analyzer IN Cardio OR; Calcium, Ionized (arterial) 1.08 mmol/L (1.12-1.30); Carboxyhemoglobin (COHb) 0.4 gm% (0.0-3.0); Hematocrit-ABG 28 % (42.0-52.0); Hemoglobin (Hb) 9.4 g/dL (14.0-18.0); pH, Arterial 7.401 (7.35-7.45)
[2022-07-30 14:16] LABS: Actual Bicarbonate (HCO3a) 21.7 mEq/L (22-28); Analyzer IN Cardio OR; Base Excess (BEa) -3.1 mEq/L (-2.0 to +3.0); CO2 Tension 37.9 mmHg (35.0-45.0); Carboxyhemoglobin (COHb) 0.6 gm% (0.0-3.0); Hematocrit-ABG 31 % (42.0-52.0); Hemoglobin (Hb) 10.7 g/dL (14.0-18.0); O2 Tension (PaO2), arterial 470.6 mmHg (> 70.0); Potassium - ABG Lab 4.52 mmol/L (3.70-5.30); Puncture Site Arterial Line; pH, Arterial 7.376 (7.35-7.45)
[2022-07-30 14:16] LABS: Puncture Site Arterial Line
[2022-07-30 15:06] LABS: Actual Bicarbonate (HCO3v) 25.7 mEq/L (22-28); Analyzer IN Cardio OR; Base Excess 0.4 mEq/L (-2.0 to +3.0); Calcium, Ionized (venous) 1.08 mmol/L (1.16-1.32); Chloride (VBG) 105 mmol/L (98-106); Hematocrit-VBG 27 % (42.0-52.0); Hemoglobin (Hb) 9.3 g/dL (12.6-17.4); Potassium (VBG) 4.83 mmol/L (3.70-5.30); Sodium 133.3 mmol/L (133-146); pH (venous) 7.376 (7.32-7.43)
[2022-07-30 17:31] LABS: Anion Gap 11 mmol/L (10-20); BUN (Urea Nitrogen) 29 mg/dL (8.4-25.7); Calc. Creatinine Clearance 55 mL/min (70-130); Calcium 8.9 mg/dL (7.8-10.44); Carbon Dioxide 18 mmol/L (23-31); Chloride 112 mmol/L (98-107); Estimated GFR 66; Glucose 114 mg/dL (83-110); Magnesium 2.5 mg/dL (1.6-2.6); Potassium 4.3 mmol/L (3.5-5.1); Sodium 137 mmol/L (136-145)
[2022-07-30] MEDS: Atorvastatin Calcium 40 MG TAB PO SCH (20:33)
[2022-07-30] MEDS: Dexamethasone 4 mg/ml Vial SLOW IVP SCH (20:33)
[2022-07-30] MEDS ORDERED: Dexamethasone 10 MG in Sodium Chloride 0.9% 50 ML IVPB SCH (21:00)
[2022-07-31 04:28] LABS: Hemoglobin 9.3 g/dL (14.0-18.0); Platelet Count 151 10x3/uL (130-400)
[2022-07-31 04:48] LABS: Anion Gap 11 mmol/L (10-20); BUN (Urea Nitrogen) 31 mg/dL (8.4-25.7); Calc. Creatinine Clearance 59 mL/min (70-130); Carbon Dioxide 22 mmol/L (23-31); Chloride 110 mmol/L (98-107); Estimated GFR 71; Glucose 133 mg/dL (83-110); Magnesium 2.3 mg/dL (1.6-2.6); Potassium 4.2 mmol/L (3.5-5.1); Sodium 139 mmol/L (136-145)
[2022-07-31] MEDS: Mometasone/Formoterol 60 PUFF AER INH SCH ×2 (07:27→18:48)
[2022-07-31] MEDS: Aspirin 325 MG TAB PO SCH (08:54)
[2022-07-31] MEDS: Tamsulosin HCl 0.4 MG CAP PO SCH (08:54)
[2022-07-31] MEDS: guaiFENesin ER 600 MG TAB PO SCH ×2 (08:55→20:05)
[2022-07-31] MEDS: Dexamethasone 4 mg/ml Vial SLOW IVP SCH ×2 (08:55→20:05)
[2022-07-31] MEDS: HYDROcodone/Acetaminophen 10/325 mg Tablet PO PRN ×2 (09:04→20:04)
[2022-07-31] MEDS: Acetaminophen 325 MG TAB PO PRN (11:51)
[2022-07-31] MEDS: Ipratropium/Albuterol 3 ML NEB EZPAP SCH ×2 (13:53→18:47)
[2022-07-31] MEDS: Atorvastatin Calcium 40 MG TAB PO SCH (20:05)
[2022-08-01] MEDS: Ipratropium/Albuterol 3 ML NEB EZPAP SCH ×4 (01:28→18:21)
[2022-08-01] MEDS: Mometasone/Formoterol 60 PUFF AER INH SCH ×2 (07:08→18:28)
[2022-08-01] MEDS ORDERED: Mineral Oil ENEMA PR PRN (08:00)
[2022-08-01] MEDS ORDERED: Zolpidem Tartrate 5 MG TAB PO PRN (08:00)
[2022-08-01] MEDS ORDERED: Nitroglycerin 0.4 MG TAB (25 Tab Bottle) SL PRN (08:00)
[2022-08-01] MEDS ORDERED: Milk Of Magnesia 30 ML UDCUP PO PRN (08:00)
[2022-08-01] MEDS: Tamsulosin HCl 0.4 MG CAP PO SCH (09:01)
[2022-08-01] MEDS: guaiFENesin ER 600 MG TAB PO SCH ×2 (09:01→21:23)
[2022-08-01] MEDS: Aspirin 325 mg Enteric Coated Tablet PO SCH (09:01)
[2022-08-01] MEDS: HYDROcodone/Acetaminophen 10/325 mg Tablet PO PRN ×2 (09:02→21:23)
[2022-08-01] MEDS: Carvedilol 3.125 MG TAB PO SCH ×2 (09:59→18:18)
[2022-08-01] MEDS: Atorvastatin Calcium 40 MG TAB PO SCH (21:23)
[2022-08-02] MEDS: Ipratropium/Albuterol 3 ML NEB EZPAP SCH ×4 (01:50→19:31)
[2022-08-02] MEDS: Mometasone/Formoterol 60 PUFF AER INH SCH ×2 (07:20→19:37)
[2022-08-02] MEDS: Aspirin 325 mg Enteric Coated Tablet PO SCH (09:06)
[2022-08-02] MEDS: HYDROcodone/Acetaminophen 10/325 mg Tablet PO PRN ×2 (09:06→18:50)
[2022-08-02] MEDS: guaiFENesin ER 600 MG TAB PO SCH ×2 (09:06→20:32)
[2022-08-02] MEDS: Carvedilol 3.125 MG TAB PO SCH ×3 (09:07→16:46)
[2022-08-02] MEDS: Tamsulosin HCl 0.4 MG CAP PO SCH (09:07)
[2022-08-02] MEDS: diphenhydrAMINE 25 MG CAP PO PRN (18:51)
[2022-08-02] MEDS: Atorvastatin Calcium 40 MG TAB PO SCH (20:32)
[2022-08-03] MEDS: Ipratropium/Albuterol 3 ML NEB EZPAP SCH ×4 (01:50→18:41)
[2022-08-03] MEDS: Mometasone/Formoterol 60 PUFF AER INH SCH ×2 (07:44→18:43)
[2022-08-03] MEDS: Acetaminophen 325 MG TAB PO PRN ×2 (09:01→20:24)
[2022-08-03] MEDS: Aspirin 325 mg Enteric Coated Tablet PO SCH (09:01)
[2022-08-03] MEDS: Tamsulosin HCl 0.4 MG CAP PO SCH (09:01)
[2022-08-03] MEDS: Carvedilol 3.125 MG TAB PO SCH ×2 (09:02→18:17)
[2022-08-03] MEDS: guaiFENesin ER 600 MG TAB PO SCH ×2 (09:02→20:24)
[2022-08-03] MEDS: diphenhydrAMINE 25 MG CAP PO PRN (20:24)
[2022-08-03] MEDS: Atorvastatin Calcium 40 MG TAB PO SCH (20:24)
[2022-08-03] MEDS: Guaifenesin DM 100-10/5 ML UDCUP PO PRN (20:24)
[2022-08-04] MEDS: Ipratropium/Albuterol 3 ML NEB EZPAP SCH ×4 (01:50→19:02)
[2022-08-04 04:44] LABS: #Eosinphils 0.2 thou/uL (0.0-0.7); #Monocytes 0.9 thou/uL (0.11-0.59); %Basophils 0.1 % (0.0-1.0); %Eosinophils 1.8 % (0.0-10.0); %Lymphocytes 19.3 % (21.0-51.0); %Monocytes 10.2 % (0.0-10.0); Hemoglobin 10.3 g/dL (14.0-18.0); Mean Corpuscular HGB CONC 32.7 g/dL (32.0-36.0); Mean Corpuscular Hemoglobin 27.7 pg (27.0-31.0); Mean Corpuscular Volume 84.7 fl (78.0-98.0); Mean Platelet Volume 9.7 fL (7.4-10.4); Platelet Count 233 10x3/uL (130-400); RBC Distribution Width 13.8 % (11.5-14.5); Red Blood Cell (RBC) Count 3.72 mill/uL (4.70-6.10); White Blood Cell (WBC) Count 8.8 10x3/uL (4.8-10.8)
[2022-08-04 05:16] LABS: Anion Gap 10 mmol/L (10-20); BUN (Urea Nitrogen) 17 mg/dL (8.4-25.7); Calc. Creatinine Clearance 71 mL/min (70-130); Carbon Dioxide 24 mmol/L (23-31); Chloride 107 mmol/L (98-107); Estimated GFR 91; Glucose 95 mg/dL (83-110); Potassium 3.7 mmol/L (3.5-5.1); Sodium 137 mmol/L (136-145)
[2022-08-04] MEDS: Mometasone/Formoterol 60 PUFF AER INH SCH ×2 (07:41→19:04)
[2022-08-04] MEDS: Carvedilol 3.125 MG TAB PO SCH ×2 (09:30→17:40)
[2022-08-04] MEDS: Aspirin 325 mg Enteric Coated Tablet PO SCH (09:30)
[2022-08-04] MEDS: guaiFENesin ER 600 MG TAB PO SCH ×2 (09:30→21:11)
[2022-08-04] MEDS: Tamsulosin HCl 0.4 MG CAP PO SCH (09:31)
[2022-08-04] MEDS: diphenhydrAMINE 25 MG CAP PO PRN (21:11)
[2022-08-04] MEDS: Atorvastatin Calcium 40 MG TAB PO SCH (21:11)
[2022-08-04] MEDS: HYDROcodone/Acetaminophen 10/325 mg Tablet PO PRN (21:15)
[2022-08-04] MEDS: Guaifenesin DM 100-10/5 ML UDCUP PO PRN (21:15)
[2022-08-05] MEDS: Ipratropium/Albuterol 3 ML NEB EZPAP SCH ×4 (00:50→19:44)
[2022-08-05 04:58] LABS: #Eosinphils 0.2 thou/uL (0.0-0.7); #Monocytes 0.9 thou/uL (0.11-0.59); #Neutrophils 5.6 thou/uL (1.40-6.50); %Basophils 0.1 % (0.0-1.0); %Eosinophils 1.8 % (0.0-10.0); %Lymphocytes 19.7 % (21.0-51.0); %Monocytes 10.9 % (0.0-10.0); %Neutrophils 66.8 % (42.0-75.0); Hemoglobin 9.5 g/dL (14.0-18.0); Mean Corpuscular HGB CONC 32.1 g/dL (32.0-36.0); Mean Corpuscular Hemoglobin 27.3 pg (27.0-31.0); Mean Corpuscular Volume 85.1 fl (78.0-98.0); Mean Platelet Volume 10.2 fL (7.4-10.4); Platelet Count 278 10x3/uL (130-400); RBC Distribution Width 13.8 % (11.5-14.5); Red Blood Cell (RBC) Count 3.48 mill/uL (4.70-6.10); White Blood Cell (WBC) Count 8.4 10x3/uL (4.8-10.8)
[2022-08-05 05:20] LABS: Anion Gap 12 mmol/L (10-20); BUN (Urea Nitrogen) 19 mg/dL (8.4-25.7); Calc. Creatinine Clearance 60 mL/min (70-130); Calcium 8.8 mg/dL (7.8-10.44); Carbon Dioxide 22 mmol/L (23-31); Chloride 107 mmol/L (98-107); Estimated GFR 75; Glucose 102 mg/dL (83-110); Potassium 3.9 mmol/L (3.5-5.1); Sodium 137 mmol/L (136-145)
[2022-08-05] MEDS: Mometasone/Formoterol 60 PUFF AER INH SCH ×2 (07:33→19:46)
[2022-08-05] MEDS: guaiFENesin ER 600 MG TAB PO SCH ×2 (08:23→20:46)
[2022-08-05] MEDS: Aspirin 325 mg Enteric Coated Tablet PO SCH (08:23)
[2022-08-05] MEDS: Acetaminophen 325 MG TAB PO PRN (08:23)
[2022-08-05] MEDS: Tamsulosin HCl 0.4 MG CAP PO SCH (08:23)
[2022-08-05] MEDS: Carvedilol 3.125 MG TAB PO SCH ×2 (08:24→17:43)
[2022-08-05] MEDS: diphenhydrAMINE 25 MG CAP PO PRN (20:46)
[2022-08-05] MEDS: Atorvastatin Calcium 40 MG TAB PO SCH (20:46)
[2022-08-05] MEDS: HYDROcodone/Acetaminophen 10/325 mg Tablet PO PRN (20:50)
[2022-08-05] MEDS: Guaifenesin DM 100-10/5 ML UDCUP PO PRN (20:53)
[2022-08-06] MEDS: Ipratropium/Albuterol 3 ML NEB EZPAP SCH ×2 (00:37→07:32)
[2022-08-06 05:07] LABS: #Eosinphils 0.2 thou/uL (0.0-0.7); #Monocytes 0.9 thou/uL (0.11-0.59); #Neutrophils 4.1 thou/uL (1.40-6.50); %Basophils 0.4 % (0.0-1.0); %Eosinophils 2.4 % (0.0-10.0); %Lymphocytes 22.2 % (21.0-51.0); %Monocytes 12.7 % (0.0-10.0); %Neutrophils 61.7 % (42.0-75.0); Hemoglobin 9.4 g/dL (14.0-18.0); Mean Corpuscular HGB CONC 31.5 g/dL (32.0-36.0); Mean Corpuscular Hemoglobin 27.6 pg (27.0-31.0); Mean Corpuscular Volume 87.4 fl (78.0-98.0); Mean Platelet Volume 9.8 fL (7.4-10.4); Platelet Count 297 10x3/uL (130-400); Red Blood Cell (RBC) Count 3.41 mill/uL (4.70-6.10); White Blood Cell (WBC) Count 6.7 10x3/uL (4.8-10.8)
[2022-08-06 05:26] LABS: Anion Gap 6 mmol/L (10-20); BUN (Urea Nitrogen) 18 mg/dL (8.4-25.7); Calc. Creatinine Clearance 59 mL/min (70-130); Calcium 8.9 mg/dL (7.8-10.44); Carbon Dioxide 29 mmol/L (23-31); Chloride 105 mmol/L (98-107); Estimated GFR 72; Glucose 93 mg/dL (83-110); Sodium 136 mmol/L (136-145)
[2022-08-06] MEDS: Mometasone/Formoterol 60 PUFF AER INH SCH (07:33)
[2022-08-06] MEDS: guaiFENesin ER 600 MG TAB PO SCH (08:49)
[2022-08-06] MEDS: Carvedilol 3.125 MG TAB PO SCH (08:49)
[2022-08-06] MEDS: Tamsulosin HCl 0.4 MG CAP PO SCH (08:49)
[2022-08-06] MEDS: Aspirin 325 mg Enteric Coated Tablet PO SCH (08:49)
[2022-08-06] MEDS: HYDROcodone/Acetaminophen 10/325 mg Tablet PO PRN (08:58)
[2022-08-06 12:19] VITALS: TEMP 98.2
[2022-08-06 12:35] VITALS: BP 115/61
== END 2022-08-06 12:58 | disposition swing bed (61) | DRG 234 ==
LOC: 2SW 05:48 → OBSVTOIN 07-22 16:32 → CCU 07-28 06:14 → 2NO 08-01 10:28
PROVIDERS: ADMIT Internal Medicine; ATTEND Internal Medicine
PROC: 4A023N7 Measurement of Cardiac Sampling and Pressure, Left Heart, Percutaneous Approach (ICD-10-PCS; 2022-07-22)
PROC: B2151ZZ Fluoroscopy of Left Heart using Low Osmolar Contrast (ICD-10-PCS; 2022-07-22)
PROC: B2111ZZ Fluoroscopy of Multiple Coronary Arteries using Low Osmolar Contrast (ICD-10-PCS; 2022-07-22)
PROC: 02110Z9 Bypass Coronary Artery, Two Arteries from Left Internal Mammary, Open Approach (ICD-10-PCS; principal; 2022-07-28)
PROC: 021209W Bypass Coronary Artery, Three Arteries from Aorta with Autologous Venous Tissue, Open Approach (ICD-10-PCS; 2022-07-28)
PROC: 06BQ4ZZ Excision of Left Saphenous Vein, Percutaneous Endoscopic Approach (ICD-10-PCS; 2022-07-28)
PROC: 5A1221Z Performance of Cardiac Output, Continuous (ICD-10-PCS; 2022-07-28)
PROC: 02L70CK Occlusion of Left Atrial Appendage with Extraluminal Device, Open Approach (ICD-10-PCS; 2022-07-28)
PROC: 30233J1 Transfusion of Nonautologous Serum Albumin into Peripheral Vein, Percutaneous Approach (ICD-10-PCS; 2022-07-29)
DX: I25.119 Atherosclerotic heart disease of native coronary artery with unspecified angina pectoris (principal); I50.22 Chronic systolic (congestive) heart failure; I13.0 Hypertensive heart and chronic kidney disease with heart failure and stage 1 through stage 4 chronic kidney disease, or unspecified chronic kidney disease; I69.354 Hemiplegia and hemiparesis following cerebral infarction affecting left non-dominant side; J44.0 Chronic obstructive pulmonary disease with (acute) lower respiratory infection; D62 Acute posthemorrhagic anemia; N18.2 Chronic kidney disease, stage 2 (mild); K21.9 Gastro-esophageal reflux disease without esophagitis; B18.2 Chronic viral hepatitis C; E11.22 Type 2 diabetes mellitus with diabetic chronic kidney disease; F41.9 Anxiety disorder, unspecified; F17.210 Nicotine dependence, cigarettes, uncomplicated; G89.4 Chronic pain syndrome; E78.5 Hyperlipidemia, unspecified; R94.39 Abnormal result of other cardiovascular function study; I25.5 Ischemic cardiomyopathy; M25.60 Stiffness of unspecified joint, not elsewhere classified; J20.9 Acute bronchitis, unspecified; I49.3 Ventricular premature depolarization; I95.1 Orthostatic hypotension; Z79.899 Other long term (current) drug therapy; Z79.84 Long term (current) use of oral hypoglycemic drugs; Z79.82 Long term (current) use of aspirin; Z98.890 Other specified postprocedural states; Z82.49 Family history of ischemic heart disease and other diseases of the circulatory system; Z82.3 Family history of stroke; Z80.9 Family history of malignant neoplasm, unspecified
CPT/HCPCS: 36415; 36416; 36430; 36600; 70551; 71045; 78452; 80048; 80061; 82805; 83036; 83735; 85014; 85018; 85025; 85049; 85347; 85610; 85730; 86850; 86900; 86901; 93005; 93010; 93017; 93306; 93458; 93798; 93880; 94002; 94150; 94640; 94664; A9500; C1751; C1769; C1776; G0378; J0171; J0360; J1100; J1642; J1644; J1815; J2001; J2150; J2250; J2260; J2272; J2440; J2704; J2720; J2785; J3010; J3370; J3475; J3480; J3490; J7050; J7120; J7611; J7620; P9045; Q9967; S0017; S0028

== ENCOUNTER 2022-11-25 14:37 | Outpatient (CLI) | payer OTHER | END 2022-11-25 14:38 | disposition home or self-care (01) | LOC: BICMAMMO 14:37 | PROVIDERS: ATTEND Family Medicine | DX: Z13.820 Encounter for screening for osteoporosis (principal) | CPT/HCPCS: 77080 ==